=== PATIENT | male | born 2000 | race Hispanic/Latino ===

== ENCOUNTER 2020-03-02 15:00 | Emergency (ER) | payer SELFPAY ==
[~2020-03-02] VITALS: Ht 172.7 cm; Wt 63.5 kg
--- NOTE | 2020-03-02 15:24 | Emergency Department Note ---
History of Present Illnes History of Present Illness Chief Complaint: General Medicine Complaints History of Present Illness This is a 19 year old male Chief Complaint Comment feels anxious after drinking engery drink 3d today. [id number]. ambulatory. no acute distress in triage. states now gone. Historian: Patient Arrival Mode: Car Past Medical/Family History Physician Review I have reviewed the patient's past medical and family history. Any updates have been documented here. Past Medical History Recent Fever: No Clinical Suspicion of Infectio: No New/Unexplained Change in Ment: No Past Medical History: None Past Surgical History: None Social History Physically hurt or threatened: No Review of Systems Review of Systems Constitutional: Reports no symptoms EENTM: Reports no symptoms Cardiovascular: Reports no symptoms Respiratory: Reports no symptoms Gastrointestinal: Reports no symptoms Genitourinary: Reports no symptoms Musculoskeletal: Reports no symptoms Integumentary: Reports no symptoms Neurological: Reports no symptoms Psychological: Reports no symptoms Endocrine: Reports no symptoms Hematological/Lymphatic: Reports no symptoms Physical Exam Related Data Allergies: Coded Allergies: No Known Allergies (Unverified , 06/26/16) Triage Vital Signs Vital Signs Date Time Temp Pulse Resp B/P (MAP) Pulse Ox O2 Delivery O2 Flow Rate FiO2 03/02/20 15:16 97.7 76 16 137/87 100 Room Air Vital signs reviewed: Yes Physical Exam CONSTITUTIONAL Constitutional: Present well-developed, Present well-nourished HENT HENT: Present normocephalic, Present atraumatic, Present oropharynx clear/moist, Present nose normal HENT L/R: Present left ext ear normal, Present right ext ear normal EYES Eyes: Reports PERRL, Reports conjunctivae normal NECK Neck: Present ROM normal PULMONARY Pulmonary: Present effort normal, Present breath sounds normal CARDIOVASCULAR Cardiovascular: Present regular rhythm, Present heart sounds normal, Present capillary refill normal, Present normal rate GASTROINTESTINAL Abdominal: Present soft, Present nontender, Present bowel sounds normal GENITOURINARY Genitourinary: Present exam deferred SKIN Skin: Present warm, Present dry MUSCULOSKELETAL Musculoskeletal: Present ROM normal NEUROLOGICAL Neurological: Present alert, Present oriented x 3, Present no gross motor or sensory deficits PSYCHOLOGICAL Psychological: Present mood/affect normal, Present judgement normal Assessment & Plan Medical Decision Making MDM 19-year-old male with no significant past medical history presents for feelings of heart racing after drinking an energy drink. Vital signs stable, within normal limits. Heart rate is 77. Symptoms likely secondary to him drinking a energy drink. I discussed with him that he is to refrain from drinking energy drinks and to follow-up with his primary care provider. Patient states agreement with plan for discharge. Reassessment Reassessment time: 07:13 Reassessment Well appearing, NAD Assessment & Plan Final Impression: (1) Caffeine adverse reaction Depart Disposition: HOME, SELF-CARE Last Vital Signs Date Time Temp Pulse Resp B/P (MAP) Pulse Ox O2 Delivery O2 Flow Rate FiO2 03/02/20 15:16 97.7 76 16 137/87 100 Room Air ZULEMA SHEA MD Mar 02, 2020 15:24
== END 2020-03-02 15:53 | disposition home or self-care (01) ==
LOC: ER 15:15
DX: F15.99 Other stimulant use, unspecified with unspecified stimulant-induced disorder (principal); T43.615A Adverse effect of caffeine, initial encounter
CPT/HCPCS: 36415; 82948; 99282

== ENCOUNTER 2024-02-12 21:45 | Emergency (ER) | payer BC ==
[~2024-02-12] VITALS: Ht 175.3 cm; Wt 92.5 kg
[2024-02-12 21:54] VITALS: TEMP 98.5
[2024-02-12 22:19] LABS: BASOPHILS # (AUTO) 0.1 (0.0-0.1); BASOPHILS % 0.5 % (0.0-1.0); EOSINOPHILS # (AUTO) 0.3 (0.0-0.4); EOSINOPHILS % 3.1 % (0.0-6.0); HEMATOCRIT 38.2 % (38.2-49.6); HEMOGLOBIN 13.1 g/dL (14.0-18.0); LYMPHOCYTES # (AUTO) 4.7 (1.0-3.2); LYMPHOCYTES % 42.9 % (18.0-39.1); MEAN CORPUSCULAR HEMOGLOBIN 31.1 pg (28-32); MEAN CORPUSCULAR HGB CONC 34.3 g/dL (31-35); MEAN CORPUSCULAR VOLUME 90.7 fL (81-99); MONOCYTES # (AUTO) 0.7 (0.2-0.8); MONOCYTES % 6.3 % (4.4-11.3); NEUTROPHILS # (AUTO) 5.2 (2.1-6.9); NEUTROPHILS % 46.9 % (38.7-80.0); PLATELET COUNT 339 x10e3/uL (140-360); RED BLOOD COUNT 4.21 x10e6/uL (4.3-5.7); RED CELL DISTRIBUTION WIDTH 11.8 % (11.7-14.4); WHITE BLOOD COUNT 11.05 x10e3/uL (4.8-10.8)
[2024-02-12] MEDS: HYDROXYZINE HCL 25 MG TAB PO ONE (22:26)
[2024-02-12 22:32] LABS: ANION GAP 17.4 mmol/L (8-16); CALCIUM 10.3 mg/dL (8.4-10.2); CREATININE, SERUM 1.07 mg/dL (0.72-1.25)
[2024-02-12 22:36] LABS: POTASSIUM 3.4 mmol/L (3.5-5.1)
[2024-02-12 23:01] VITALS: PULSE 63; RESP 12
[2024-02-12] MEDS ORDERED: HYDROXYZINE HCL25 MG PO (23:27)
[2024-02-12 23:48] VITALS: BP 109/65; PULSE 73; RESP 16; TEMP 98.5; O2SAT 99
== END 2024-02-12 23:43 | disposition home or self-care (01) ==
LOC: ER 21:55
DX: F41.9 Anxiety disorder, unspecified (principal); R07.89 Other chest pain; R20.2 Paresthesia of skin; R20.0 Anesthesia of skin; R06.82 Tachypnea, not elsewhere classified
CPT/HCPCS: 36415; 71045; 80048; 84484; 85025; 93005; 99284; J3410